=== PATIENT | male | born 1955 ===

== ENCOUNTER 2017-10-11 12:34 | Inpatient (IN) | payer MEDICARE, MEDICAID ==
[~2017-10-11] VITALS: Ht 177.8 cm; Wt 74.8 kg
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
[2017-10-11] MEDS ORDERED: CHOL200078 PO (13:12)
[2017-10-11] MEDS ORDERED: MAGN400O6 PO (13:12)
[2017-10-11] MEDS ORDERED: ASPI-605 PO (13:12)
[2017-10-11] MEDS ORDERED: METO-358 PO (13:12)
[2017-10-11] MEDS ORDERED: NA P133E RC (13:12)
[2017-10-11] MEDS ORDERED: ALBU2.5V38 NEB (13:12)
[2017-10-11] MEDS ORDERED: SENN-167 PO (13:12)
[2017-10-11] MEDS ORDERED: ACET-2154 PO (13:12)
[2017-10-11] MEDS ORDERED: QUET50TA PO (13:12)
[2017-10-11] MEDS ORDERED: DULCOLAX SUPPOSITORY RC (13:12)
[2017-10-11] MEDS ORDERED: ATOR20TA PO (13:12)
[2017-10-11] MEDS ORDERED: AMLO10TA4 PO (13:12)
[2017-10-11] MEDS ORDERED: LORA-259 PO (13:12)
[2017-10-11 13:18] LABS: BASOPHILS # (AUTO) 0.1 K/uL (0.0-8.0); BASOPHILS % (AUTO) 0.6 % (0.0-2.0); EOSINOPHILS # (AUTO) 0.1 K/uL (0.0-0.7); EOSINOPHILS % (AUTO) 0.6 % (0.0-7.0); HEMATOCRIT 48.1 % (36.7-47.1); HEMOGLOBIN 16.9 g/dL (12.5-16.3); LYMPHOCYTES # (AUTO) 1.6 K/uL (20.0-40.0); LYMPHOCYTES % (AUTO) 14.2 % (20.5-51.5); MEAN CORPUSCULAR HEMOGLOBIN 31.4 uug (23.8-33.4); MEAN CORPUSCULAR HGB CONC 35 g/dL (32.5-36.3); MEAN CORPUSCULAR VOLUME 89.2 fL (73.0-96.2); MONOCYTES # (AUTO) 0.8 K/uL (2.0-10.0); MONOCYTES % (AUTO) 7.3 % (0.0-11.0); NEUTROPHILS # (AUTO) 8.7 K/uL (1.8-8.9); NEUTROPHILS % (AUTO) 77.3 % (38.5-71.5); PLATELET COUNT (AUTO) 253 K/uL (152-348); RED BLOOD CELL COUNT(AUTO) 5.39 MIL/uL (4.06-5.63); WHITE BLOOD COUNT (AUTO) 11.3 K/uL (3.6-10.2)
[2017-10-11 13:25] LABS: CARBON DIOXIDE 28 mmol/L (21-32); CHLORIDE 103 mmol/L (98-107); CREATININE 0.9 mg/dL (0.6-1.3); GLUCOSE 104 mg/dL (74-106); POTASSIUM 3.8 mmol/L (3.5-5.1); UREA NITROGEN, BLOOD 14 mg/dL (7-18)
[2017-10-11 13:27] LABS: ETHANOL < 3 MG/DL (0-0)
[2017-10-11 13:30] LABS: ALANINE AMINOTRANSFERASE 37 U/L (16-63); ALKALINE PHOSPHATASE 84 U/L (50-136); ASPARTATE AMINOTRANSFERASE 20 U/L (15-37); BILIRUBIN,DIRECT 0.1 mg/dL (0.0-0.2); BILIRUBIN,TOTAL 0.6 mg/dL (0.2-1.0)
[2017-10-11 13:31] LABS: ACETAMINOPHEN < 2.0 ug/mL (10-30)
[2017-10-11 13:52] LABS: *BILIRUBIN,URIN NEGATIVE (NEGATIVE); *BLOOD, URINE Trace-intact (NEGATIVE); *CLARITY,URINE CLEAR (CLEAR); *COLOR,URINE YELLOW (YELLOW); *KETONES,URINE NEGATIVE (NEGATIVE); *PROTEIN,URINE NEGATIVE (NEGATIVE); *UROBILINOGEN,URINE 0.2 E.U./dl (NORMAL); LEUKOCYTE ESTERASE ,URINE NEGATIVE (NEGATIVE); NITRITE, URINE NEGATIVE (NEGATIVE); UGLUCOSE NEGATIVE (NEGATIVE)
[2017-10-11 13:53] LABS: BACTERIA,URINE FEW /HPF (NONE SEEN); RBC,URINE 0-3 /HPF (0-3); SQUAMOUS EPITHELIAL CELL,UR FEW /HPF (NONE SEEN); WBC,URINE 0-3 /HPF (0-3)
[2017-10-11 14:01] LABS: *AMPHETAMINE, URINE NEGATIVE (NEGATIVE); *BARBITURATE, URINE NEGATIVE (NEGATIVE); *CANNABINOID, URINE NEGATIVE (NEGATIVE); *COCCAINE, URINE NEGATIVE (NEGATIVE); *OPIATE, URINE NEGATIVE (NEGATIVE); *PHENCYCLIDINE SCREEN,URINE NEGATIVE (NEGATIVE)
--- NOTE | 2017-10-11 15:50 | NUR ---
GPS/RN- PATIENT ADMITTED TO [facility].
--- NOTE | 2017-10-11 15:55 | NUR ---
Pt. admitted to GPS, under care of Dr. Figueroa Belongs List completed
[2017-10-11 16:00] VITALS: BP 144/95
[2017-10-11] MEDS ORDERED: ACETAMINOPHEN 325 MG TABLET PO PRN (17:00)
[2017-10-11] MEDS ORDERED: ZOLPIDEM 5 MG TABLET PO PRN (17:00)
[2017-10-11] MEDS ORDERED: MAGNESIUM HYDROXIDE 30 ML LIQUID UDC PO PRN (17:00)
[2017-10-11] MEDS ORDERED: MAG HYDROX/AL HYDROX/SIMETH 30 ML LIQUID UDC PO PRN (17:00)
[2017-10-11] MEDS ORDERED: FLEET ENEMA 133 ML BOTTLE RC PRN (17:45)
[2017-10-11] MEDS ORDERED: ALBUTEROL SULFATE 2.5 MG/3 ML NEBU NEB PRN (17:45)
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
[2017-10-11] MEDS: QUETIAPINE FUMARATE 25 MG TABLET PO SCH (20:49)
[2017-10-11] MEDS: DIVALPROEX 250 MG TABLET.DR PO SCH (20:49)
[2017-10-11] MEDS: ATORVASTATIN 20 MG TABLET PO SCH (20:49)
[2017-10-11] MEDS ORDERED: SENNOSIDES 1 TABLET PO SCH (21:00)
[2017-10-11] MEDS: SENNOSIDES 1 TABLET PO SCH (21:05)
--- NOTE | 2017-10-11 22:00 | NUR ---
received to care, lying in bed, with sheet over his head, isolative, but pleasant when approached. by 2099, he was awake, sitting at bedside. bedtime medications, and snack was given. as of 2199, he remains awake, sitting in his room, talking to self, appearing distracted by internal stimuli. PRN medications were offered for anxiety or insomnia, but he declined. no distress noted. will continue to monitor closely.
[2017-10-11 22:20] VITALS: BP 114/60
--- NOTE | 2017-10-12 00:58 | NUR ---
GPS/NSG Vital Signs entered at 2200 under short form taken originally at 1999.
--- NOTE | 2017-10-12 06:00 | NUR ---
slept 6.75 hours, total.
[2017-10-12 07:30] VITALS: BP 137/93
[2017-10-12] MEDS: NICOTINE 21 MG/24HR PATCH TD SCH (08:03)
[2017-10-12] MEDS: METOPROLOL SUCCINATE XL 100 MG TAB.SR.24H PO SCH (08:04)
[2017-10-12] MEDS: CHOLECALCIFEROL 1,000 UNIT TABLET PO SCH (08:04)
[2017-10-12] MEDS: DIVALPROEX 250 MG TABLET.DR PO SCH ×2 (08:04→20:48)
[2017-10-12] MEDS: QUETIAPINE FUMARATE 25 MG TABLET PO SCH ×4 (08:04→20:48)
[2017-10-12] MEDS: ASPIRIN EC 81 MG TABLET.DR PO SCH (08:04)
[2017-10-12] MEDS: AMLODIPINE 10 MG TABLET PO SCH (08:04)
--- NOTE | 2017-10-12 12:33 | NUR ---
Gps/Building Construction Inspector- Noted patient talking to himself, responding to internal stimuli, laughing and talking to himself, when asked if everything is ok, patient starting to get mad, and loud, instructed to to go back to his room.Compliant with his routine meds. Stayed in bed, covering his whole body with bedsheet.
[2017-10-12] MEDS: LORAZEPAM 1 MG TABLET PO PRN ×2 (14:14→23:17)
--- NOTE | 2017-10-12 14:16 | NUR ---
GPS/RN- PRN ATIVAN Patient anxious and becoming agitated, responding to stimuli, word salad, paranoid and suspicious upon approach, avoids eye contact, extends hand to receive medication but looks other way, PRN Ativan given continue to monitor
--- NOTE | 2017-10-12 16:33 | NUR ---
Initial DC Plan: Patient currently resides at [facility] [[address], [place] [address]; ]. UYEN spoke with Lamar at [facility] who stated they can accept patient back when ready. UYEN will follow up with MD, patient, and patient's brother Ge [[phone]] to discuss most appropriate discharge plans. SW will form a safe and proper discharge.
[2017-10-12 17:11] VITALS: BP 106/77
[2017-10-12 20:00] VITALS: BP 97/72
[2017-10-12] MEDS: ATORVASTATIN 20 MG TABLET PO SCH (20:48)
[2017-10-12] MEDS: OMEGA-3 FATTY ACIDS/FISH OIL CAPSULE PO SCH (20:48)
[2017-10-12] MEDS: SENNOSIDES 1 TABLET PO SCH (20:48)
[2017-10-12 21:06] VITALS: BP 110/74
--- NOTE | 2017-10-12 22:00 | NUR ---
received to care, lying in bed, isolative, but pleasant when approached. bedtime medications, and snack was given. as of 2200, he remains awake, lying in his bed, talking to self, appearing distracted by internal stimuli. no distress noted. will continue to monitor closely.
--- NOTE | 2017-10-12 23:17 | NUR ---
remains awake, talking to self, and laughing inappropriately. PRN ativan was given. currently sitting at bedside. no distress noted. will continue to monitor closely.
--- NOTE | 2017-10-13 00:30 | NUR ---
appears to be asleep. no distress noted.
--- NOTE | 2017-10-13 06:31 | NUR ---
slept 7.0 hours, total. is now awake. appears calm, but distracted by internal stimuli. currently drinking juice. no distress noted.
[2017-10-13 07:30] VITALS: BP 116/79
[2017-10-13] MEDS: OMEGA-3 FATTY ACIDS/FISH OIL CAPSULE PO SCH ×2 (08:42→21:04)
[2017-10-13] MEDS: CHOLECALCIFEROL 1,000 UNIT TABLET PO SCH (08:43)
[2017-10-13] MEDS: AMLODIPINE 10 MG TABLET PO SCH (08:43)
[2017-10-13] MEDS: QUETIAPINE FUMARATE 25 MG TABLET PO SCH ×4 (08:43→21:05)
[2017-10-13] MEDS: DIVALPROEX 250 MG TABLET.DR PO SCH ×2 (08:43→21:04)
[2017-10-13] MEDS: NICOTINE 21 MG/24HR PATCH TD SCH (08:44)
[2017-10-13] MEDS: ASPIRIN EC 81 MG TABLET.DR PO SCH (08:51)
[2017-10-13] MEDS: METOPROLOL SUCCINATE XL 100 MG TAB.SR.24H PO SCH (09:50)
--- NOTE | 2017-10-13 11:30 | NUR ---
Gps/Any Commodity Buyer- Patient was yelling at the staff before his shower, noted patient responding to internal stimuli.Showered self independently after set up.
[2017-10-13] MEDS: LORAZEPAM 1 MG TABLET PO PRN ×2 (11:36→17:22)
[2017-10-13 15:48] VITALS: BP 101/69
[2017-10-13 20:48] VITALS: BP 110/89
[2017-10-13] MEDS: ATORVASTATIN 20 MG TABLET PO SCH (21:04)
[2017-10-13] MEDS: SENNOSIDES 1 TABLET PO SCH (21:05)
--- NOTE | 2017-10-13 22:04 | NUR ---
RECEIVED RESIDENT LYING IN BED AND TALKING TO SELF. LATER GOT UP AND PACED THE FLOOR A FEW TIMES AND WENT BACK TO LAY DOWN.HE IS ISOLATIVE ,GUARDED AND APPEARS TO BE RESPONDING TO INTERNAL STIMULI EVEN THOUGH HE DENIES IT. HE IS HOWEVER COMPLIANT WITH HIS MEDS AND COOPERATIVE WHEN HE WANTS. DENIES ANY PAIN. WILL CONTINUE TO MONITOR.
--- NOTE | 2017-10-14 06:52 | NUR ---
PATIENT SLEPT APPROX. 7 HOURS.NO EXPRESSION OF PAIN OE DISCOMFORT.COMPLIANT WITH CARE. WILL CONTINUE TO MONITOR.
[2017-10-14 07:30] VITALS: BP 126/87
[2017-10-14] MEDS: OMEGA-3 FATTY ACIDS/FISH OIL CAPSULE PO SCH ×2 (08:10→20:40)
[2017-10-14] MEDS: QUETIAPINE FUMARATE 25 MG TABLET PO SCH ×4 (08:10→20:41)
[2017-10-14] MEDS: AMLODIPINE 5 MG TABLET PO SCH (08:10)
[2017-10-14] MEDS: ASPIRIN EC 81 MG TABLET.DR PO SCH (08:10)
[2017-10-14] MEDS: NICOTINE 21 MG/24HR PATCH TD SCH (08:10)
[2017-10-14] MEDS: CHOLECALCIFEROL 1,000 UNIT TABLET PO SCH (08:11)
[2017-10-14] MEDS: DIVALPROEX 250 MG TABLET.DR PO SCH ×2 (08:11→20:40)
[2017-10-14] MEDS ORDERED: AMLODIPINE 10 MG TABLET PO SCH (09:00)
[2017-10-14] MEDS: METOPROLOL SUCCINATE XL 100 MG TAB.SR.24H PO SCH (09:05)
[2017-10-14 15:52] VITALS: BP 108/77
[2017-10-14] MEDS: LORAZEPAM 1 MG TABLET PO PRN (18:59)
[2017-10-14 20:28] VITALS: BP 118/79
[2017-10-14] MEDS: SENNOSIDES 1 TABLET PO SCH (20:41)
[2017-10-14] MEDS: ATORVASTATIN 20 MG TABLET PO SCH (20:41)
--- NOTE | 2017-10-15 04:22 | NUR ---
Episode of agitation, talking to self noted. Went back to bed after RN answered his questions re: breakfast.
--- NOTE | 2017-10-15 05:50 | NUR ---
Appears to be asleep. No distress noted, respirations even and unlabored. Frequent checks done.
[2017-10-15 07:30] VITALS: BP 123/93
[2017-10-15] MEDS: OMEGA-3 FATTY ACIDS/FISH OIL CAPSULE PO SCH ×2 (08:46→20:25)
[2017-10-15] MEDS: AMLODIPINE 5 MG TABLET PO SCH (08:46)
[2017-10-15] MEDS: CHOLECALCIFEROL 1,000 UNIT TABLET PO SCH (08:47)
[2017-10-15] MEDS: QUETIAPINE FUMARATE 25 MG TABLET PO SCH ×4 (08:47→20:25)
[2017-10-15] MEDS: ASPIRIN EC 81 MG TABLET.DR PO SCH (08:47)
[2017-10-15] MEDS: NICOTINE 21 MG/24HR PATCH TD SCH (08:47)
[2017-10-15] MEDS: METOPROLOL SUCCINATE XL 100 MG TAB.SR.24H PO SCH (08:48)
[2017-10-15] MEDS: DIVALPROEX 250 MG TABLET.DR PO SCH ×3 (09:44→17:37)
[2017-10-15 15:42] VITALS: BP 113/80
[2017-10-15 20:19] VITALS: BP 125/90
[2017-10-15] MEDS: SENNOSIDES 1 TABLET PO SCH (20:25)
[2017-10-15] MEDS: ATORVASTATIN 20 MG TABLET PO SCH (20:25)
--- NOTE | 2017-10-16 06:46 | NUR ---
SLEPT 7 HRS DURING SHIFT. HAD SHOWER IN AM. NO C/O PAIN. CALM, BUT OBSERVED TALKING TO SELF AT TIMES.
[2017-10-16 07:30] VITALS: BP 120/83
[2017-10-16] MEDS: NICOTINE 21 MG/24HR PATCH TD SCH (08:45)
[2017-10-16] MEDS: OMEGA-3 FATTY ACIDS/FISH OIL CAPSULE PO SCH ×2 (08:45→21:05)
[2017-10-16] MEDS: QUETIAPINE FUMARATE 25 MG TABLET PO SCH ×4 (08:46→21:05)
[2017-10-16] MEDS: DIVALPROEX 250 MG TABLET.DR PO SCH ×3 (08:46→16:29)
[2017-10-16] MEDS: CHOLECALCIFEROL 1,000 UNIT TABLET PO SCH (08:47)
[2017-10-16] MEDS: AMLODIPINE 5 MG TABLET PO SCH (08:50)
[2017-10-16] MEDS: METOPROLOL SUCCINATE XL 100 MG TAB.SR.24H PO SCH (08:51)
[2017-10-16] MEDS: ASPIRIN EC 81 MG TABLET.DR PO SCH (08:54)
[2017-10-16 15:41] VITALS: BP 109/76
[2017-10-16 19:30] VITALS: BP 118/77
[2017-10-16] MEDS: ATORVASTATIN 20 MG TABLET PO SCH (21:05)
[2017-10-16] MEDS: SENNOSIDES 1 TABLET PO SCH (21:06)
--- NOTE | 2017-10-16 22:00 | NUR ---
received to care, lying in bed, isolative, but pleasant upon approach. compliant with medications, and bedtime snack. as of 2200, he remains awake, lying in his bed, talking to self, appearing distracted by internal stimuli. no distress noted. will continue to monitor closely.
--- NOTE | 2017-10-16 22:30 | NUR ---
appears to be asleep. no distress noted.
[2017-10-17] MEDS: LORAZEPAM 1 MG TABLET PO PRN ×2 (01:00→21:47)
--- NOTE | 2017-10-17 01:00 | NUR ---
pt is now awake, laughing inappropriately, but remains calm and cooperative. appears distracted by internal stimuli. PRN ativan was given at this time, along with a snack. will continue to monitor closely.
--- NOTE | 2017-10-17 01:45 | NUR ---
appears to be asleep. no distress noted.
--- NOTE | 2017-10-17 06:41 | NUR ---
slept 7.0 hours, total. is now awake. remains calm. no distress noted.
[2017-10-17 08:00] VITALS: BP 114/89
[2017-10-17] MEDS: DIVALPROEX 250 MG TABLET.DR PO SCH ×3 (08:40→16:49)
[2017-10-17] MEDS: QUETIAPINE FUMARATE 25 MG TABLET PO SCH ×2 (08:40→16:49)
[2017-10-17] MEDS: OMEGA-3 FATTY ACIDS/FISH OIL CAPSULE PO SCH ×2 (08:40→20:30)
[2017-10-17] MEDS: ASPIRIN EC 81 MG TABLET.DR PO SCH (08:40)
[2017-10-17] MEDS: NICOTINE 21 MG/24HR PATCH TD SCH (08:41)
[2017-10-17] MEDS: AMLODIPINE 5 MG TABLET PO SCH (08:41)
[2017-10-17] MEDS: METOPROLOL SUCCINATE XL 100 MG TAB.SR.24H PO SCH (08:43)
[2017-10-17] MEDS: CHOLECALCIFEROL 1,000 UNIT TABLET PO SCH (08:43)
[2017-10-17 16:00] VITALS: BP 130/88
[2017-10-17 19:30] VITALS: BP 129/85
[2017-10-17] MEDS: SENNOSIDES 1 TABLET PO SCH (20:31)
[2017-10-17] MEDS: QUETIAPINE FUMARATE 100 MG TABLET PO SCH (20:31)
[2017-10-17] MEDS: ATORVASTATIN 20 MG TABLET PO SCH (20:31)
--- NOTE | 2017-10-17 22:30 | NUR ---
received to care, sitting in his room, isolative, but pleasant upon approach. appears to be talking to self, at times. compliant with medications, and bedtime snack. as of 2199, he remains awake, lying in his bed, talking to self, appearing distracted by internal stimuli. PRN ativan given at 2146, for anxiety and restlessness. as of 2229, he appears to be asleep. no distress noted. will continue to monitor closely.
--- NOTE | 2017-10-18 06:00 | NUR ---
slept 6.0 hours, total. assisted with am care, and shower. no distress noted.
[2017-10-18 08:00] VITALS: BP 121/92
[2017-10-18] MEDS: ASPIRIN EC 81 MG TABLET.DR PO SCH (08:46)
[2017-10-18] MEDS: OMEGA-3 FATTY ACIDS/FISH OIL CAPSULE PO SCH ×2 (08:46→20:19)
[2017-10-18] MEDS: QUETIAPINE FUMARATE 25 MG TABLET PO SCH ×2 (08:47→17:04)
[2017-10-18] MEDS: DIVALPROEX 250 MG TABLET.DR PO SCH ×3 (08:47→17:03)
[2017-10-18] MEDS: AMLODIPINE 5 MG TABLET PO SCH (08:48)
[2017-10-18] MEDS: NICOTINE 21 MG/24HR PATCH TD SCH (08:49)
[2017-10-18] MEDS: CHOLECALCIFEROL 1,000 UNIT TABLET PO SCH (08:49)
[2017-10-18] MEDS: METOPROLOL SUCCINATE XL 100 MG TAB.SR.24H PO SCH (08:51)
[2017-10-18 16:00] VITALS: BP 118/80
[2017-10-18] MEDS: QUETIAPINE FUMARATE 100 MG TABLET PO SCH (20:20)
[2017-10-18] MEDS: SENNOSIDES 1 TABLET PO SCH (20:20)
[2017-10-18] MEDS: ATORVASTATIN 20 MG TABLET PO SCH (20:20)
[2017-10-18 20:59] VITALS: BP 121/88
--- NOTE | 2017-10-18 22:00 | NUR ---
received to care, sitting in his room, talking to self intermittently, but pleasant upon approach. compliant with medications and staff direction. as of 2199, he is in bed, but remains awake. no distress noted. will continue to monitor closely.
[2017-10-18] MEDS: LORAZEPAM 1 MG TABLET PO PRN (22:49)
--- NOTE | 2017-10-18 22:49 | NUR ---
pt appears more agitated, and distracted by internal stimuli. laughing inappropriately. verbally abusive to female staff, using profanity, and threats of violence, requiring redirection, by this jingle writer. PRN ativan was given at this time. will continue to monitor closely.
--- NOTE | 2017-10-19 00:05 | NUR ---
appears slightly calmer. currently in activity room, by self, drawing a picture, eating a sandwich, and laughing out loud, intermittently. will continue to monitor closely.
--- NOTE | 2017-10-19 01:30 | NUR ---
appears to be asleep. no distress noted.
--- NOTE | 2017-10-19 06:00 | NUR ---
slept 4.5 hours, total. is now awake. remains calm. no distress noted.
[2017-10-19 07:30] VITALS: BP 138/90
[2017-10-19] MEDS: QUETIAPINE FUMARATE 25 MG TABLET PO SCH ×2 (08:49→16:36)
[2017-10-19] MEDS: NICOTINE 21 MG/24HR PATCH TD SCH (08:49)
[2017-10-19] MEDS: AMLODIPINE 5 MG TABLET PO SCH (08:50)
[2017-10-19] MEDS: OMEGA-3 FATTY ACIDS/FISH OIL CAPSULE PO SCH (08:50)
[2017-10-19] MEDS: ASPIRIN EC 81 MG TABLET.DR PO SCH (08:50)
[2017-10-19] MEDS: DIVALPROEX 250 MG TABLET.DR PO SCH ×4 (08:51→20:43)
[2017-10-19] MEDS: METOPROLOL SUCCINATE XL 100 MG TAB.SR.24H PO SCH (08:54)
[2017-10-19] MEDS: CHOLECALCIFEROL 1,000 UNIT TABLET PO SCH (08:56)
[2017-10-19 15:48] VITALS: BP 118/67
--- NOTE | 2017-10-19 17:59 | NUR ---
Gps/Set Up Inspector-Less anxious, continue to be compliant with his routine medications, no agitation noted, still responding to internal stimuli , occ. laughing out loud noted.
[2017-10-19] MEDS: QUETIAPINE FUMARATE 100 MG TABLET PO SCH (20:44)
[2017-10-19] MEDS: ATORVASTATIN 20 MG TABLET PO SCH (20:44)
[2017-10-19] MEDS: SENNOSIDES 1 TABLET PO SCH (20:44)
[2017-10-19 21:38] VITALS: BP 126/96
--- NOTE | 2017-10-20 06:16 | NUR ---
GPS: Remain calm and cooperative. noted talking to him self and occ laughing. slept 3:30 hrs through the night. ambulate to bathroom with steady gait. patient isolative like to stay in his room.no agitation noted. continue plan of care.
[2017-10-20 07:30] VITALS: BP 130/74
[2017-10-20] MEDS: AMLODIPINE 5 MG TABLET PO SCH (09:39)
[2017-10-20] MEDS: LORAZEPAM 1 MG TABLET PO PRN (09:40)
[2017-10-20] MEDS: DIVALPROEX 250 MG TABLET.DR PO SCH ×4 (09:40→21:30)
[2017-10-20] MEDS: QUETIAPINE FUMARATE 25 MG TABLET PO SCH (09:40)
[2017-10-20] MEDS: METOPROLOL SUCCINATE XL 100 MG TAB.SR.24H PO SCH (09:41)
[2017-10-20] MEDS: CHOLECALCIFEROL 1,000 UNIT TABLET PO SCH (09:41)
[2017-10-20] MEDS: NICOTINE 21 MG/24HR PATCH TD SCH (09:41)
[2017-10-20] MEDS: ASPIRIN EC 81 MG TABLET.DR PO SCH (09:41)
[2017-10-20 13:00] VITALS: BP 107/75
[2017-10-20] MEDS: QUETIAPINE FUMARATE 100 MG TABLET PO SCH ×3 (13:38→21:30)
--- NOTE | 2017-10-20 18:28 | NUR ---
patient continues to RiS LOUDLY AT NTIMES AND IN BED , RE ORIENTED NEEDED , CONTINUE TO MONITOR HIS BEHAVIOR
[2017-10-20 20:00] VITALS: BP 120/78
--- NOTE | 2017-10-20 21:00 | NUR ---
RECEIVE PT AWAKE, ALERT AND ORIENTEDX2. PT SHOWS NO SIGNS OF DISTRESS. SAFETY PROVIDED.WILL CONTINUE TO MONITOR.
[2017-10-20] MEDS: ATORVASTATIN 20 MG TABLET PO SCH (21:30)
[2017-10-20] MEDS: SENNOSIDES 1 TABLET PO SCH (21:30)
--- NOTE | 2017-10-21 06:48 | NUR ---
PT SLEPT THROUGHOUT THE SHIFT. PT SHOWS NO SIGNS OF DISTRESS. PT CALM AND COOPERATIVE. SAFETY AND COMFORT PROVIDED. WILL ENDORSE TO DAYSHIFT NURSE.
[2017-10-21 07:30] VITALS: BP 96/60
[2017-10-21] MEDS: AMLODIPINE 5 MG TABLET PO SCH (09:00)
[2017-10-21] MEDS: METOPROLOL SUCCINATE XL 100 MG TAB.SR.24H PO SCH (09:00)
[2017-10-21] MEDS: DIVALPROEX 250 MG TABLET.DR PO SCH ×4 (09:46→20:42)
[2017-10-21] MEDS: ASPIRIN EC 81 MG TABLET.DR PO SCH (09:46)
[2017-10-21] MEDS: QUETIAPINE FUMARATE 100 MG TABLET PO SCH ×4 (09:47→20:41)
[2017-10-21] MEDS: NICOTINE 21 MG/24HR PATCH TD SCH (09:51)
[2017-10-21] MEDS: CHOLECALCIFEROL 1,000 UNIT TABLET PO SCH (09:51)
[2017-10-21 15:35] VITALS: BP 131/86
[2017-10-21 20:00] VITALS: BP 128/84
--- NOTE | 2017-10-21 20:00 | NUR ---
RECEIVED PT AWAKE. ALERT, AND ORIENTEDX2. PT SITTING ON A CHAIR. PT QUIET. SHOWS NO SIGNS OF DISTRESS. OFFERED FOOD TO EAT. PT RESPONSIVE IN A BIT BUT SLIGHTLY ANXIOUS. WILL CONTINUE TO MONITOR.
[2017-10-21] MEDS: ATORVASTATIN 20 MG TABLET PO SCH (20:41)
[2017-10-21] MEDS: SENNOSIDES 1 TABLET PO SCH (20:42)
[2017-10-21] MEDS: LORAZEPAM 1 MG TABLET PO PRN (21:29)
--- NOTE | 2017-10-21 21:29 | NUR ---
PT AGITATED.PACING ON THE DAYROOM AND BACK TO HIS ROOM. GIVEN ATIVAN PER NURSING JUDGEMENT. SAFETY PROVIDED. WILL CONTINUE TO MONITOR.
--- NOTE | 2017-10-21 22:00 | NUR ---
PT AWAKE AND WENT TO NURSE STATION TO ASK FOR FOOD. SAFETY PROVIDED. WILL CONTINUE TO MONITOR.
--- NOTE | 2017-10-22 05:48 | NUR ---
PT SLEPT THROUGHOUT THE SHIFT. PT SHOWS NO SIGNS OF DISTRESS. COMPLIANT WITH MEDICATION. SAFETY PROVIDED. WILL ENDORSE TO DAYSHIFT NURSE.
[2017-10-22 07:30] VITALS: BP 129/84
[2017-10-22] MEDS: QUETIAPINE FUMARATE 100 MG TABLET PO SCH ×4 (08:19→20:58)
[2017-10-22] MEDS: DIVALPROEX 250 MG TABLET.DR PO SCH ×4 (08:19→20:57)
[2017-10-22] MEDS: ASPIRIN EC 81 MG TABLET.DR PO SCH (08:19)
[2017-10-22] MEDS: CHOLECALCIFEROL 1,000 UNIT TABLET PO SCH (08:20)
[2017-10-22] MEDS: NICOTINE 21 MG/24HR PATCH TD SCH (08:20)
[2017-10-22] MEDS: AMLODIPINE 5 MG TABLET PO SCH (08:20)
[2017-10-22] MEDS: METOPROLOL SUCCINATE XL 100 MG TAB.SR.24H PO SCH (08:26)
[2017-10-22 16:38] VITALS: BP 124/83
[2017-10-22 19:30] VITALS: BP 149/90
--- NOTE | 2017-10-22 19:45 | NUR ---
RECEIVED PT IN HIS ROOM, SITTING IN HIS BED. HE IS NOTED A/O X 1. LOW MOOD, LABILE, TANGENTIAL AND EASILY IRRITABLE. HE STATED, 'NO, I DON'T HEAR VOICES, AND DON'T ASK ME ANY MORE QUESTIONS, GOOD, BY". SAFETY EMPHASIS. WILL CONTINUE TO MONITOR CLOSELY.
[2017-10-22] MEDS: SENNOSIDES 1 TABLET PO SCH (20:58)
[2017-10-22] MEDS ORDERED: ATORVASTATIN 20 MG TABLET PO SCH (21:00)
--- NOTE | 2017-10-23 00:05 | NUR ---
IT WAS REPORTED TO THIS PECAN PICKER THAT PATIENT HAS JUST VOMITED. HE WAS HELPED TO THE SHOWER AND HIS BED WAS COMPLETE CHANGED. PT REFUSED V/S, REFUSED [place], HE STATED, "I AM OKAY." WILL CONTINUE TO MONITOR CLOSELY.
[2017-10-23 07:30] VITALS: BP 118/82
[2017-10-23] MEDS: ASPIRIN EC 81 MG TABLET.DR PO SCH (08:15)
[2017-10-23] MEDS: DIVALPROEX 250 MG TABLET.DR PO SCH ×2 (08:15→12:36)
[2017-10-23] MEDS: CHOLECALCIFEROL 1,000 UNIT TABLET PO SCH (08:15)
[2017-10-23] MEDS: METOPROLOL SUCCINATE XL 100 MG TAB.SR.24H PO SCH (08:16)
[2017-10-23 08:17] VITALS: BP 118/82
[2017-10-23] MEDS: AMLODIPINE 5 MG TABLET PO SCH (08:17)
[2017-10-23] MEDS: NICOTINE 21 MG/24HR PATCH TD SCH (08:19)
[2017-10-23] MEDS: QUETIAPINE FUMARATE 100 MG TABLET PO SCH ×2 (08:19→12:36)
--- NOTE | 2017-10-23 08:56 | NUR ---
DC Note: Patient will be discharged to [facility] [[address] [facility], [place] [address]; ] via ambulance at 11am. UYEN spoke with Marc at [facility] to confirm discharge plans. Patient is alert and oriented x2. UYEN spoke with patient's brother Ge [[phone]] who is aware and agreeable to discharge plans. Patient will follow up with Dr. Figueroa (Psychiatrist) and Dr. Dewitt (Boot Lace Cutter Machine) at the facility. Patient was provided smoking cessation referrals for [place] [employer] [id number] and [employer] [phone].
--- NOTE | 2017-10-23 13:01 | NUR ---
DISCHARGED PATIENT TO [facility] ,REPORT GIVEN TO RN MANUSCRIPTS ARCHIVIST MARIA DEL CARMEN ,ALL PERSONAL BELONGING TAKEN BY PATIENT ,VSS.
== END 2017-10-23 13:07 | DRG 885 ==
LOC: ER 12:34 → GPS 15:39
PROVIDERS: ADMIT Psychiatry & Neurology Psychiatry; ATTEND Internal Medicine
DX: F25.0 Schizoaffective disorder, bipolar type (principal); J44.9 Chronic obstructive pulmonary disease, unspecified; Z72.0 Tobacco use; K21.9 Gastro-esophageal reflux disease without esophagitis; I25.10 Atherosclerotic heart disease of native coronary artery without angina pectoris; K59.00 Constipation, unspecified; I10 Essential (primary) hypertension; D72.829 Elevated white blood cell count, unspecified; E55.9 Vitamin D deficiency, unspecified; R32 Unspecified urinary incontinence; R73.03 Prediabetes; E78.1 Pure hyperglyceridemia; Z79.899 Other long term (current) drug therapy; Z79.82 Long term (current) use of aspirin; Z88.0 Allergy status to penicillin
CPT/HCPCS: 36415; 71045; 80164; 80307; 84443; 85025; 85730; 93005; A4663; G0480; G0480-TC; J3490